=== PATIENT | female | born 1965 | race Two or more races ===

== ENCOUNTER 2017-01-12 22:06 | Emergency (ER) | payer BC ==
[2017-01-12] MEDS ORDERED: IBUPROFEN 600 MG TAB PO ONE (22:49)
[2017-01-12] MEDS ORDERED: ONDANSETRON 4 MG/2 ML VIAL ONE (22:49)
[2017-01-12] MEDS ORDERED: HYDROmorphone 1 MG/ML 1 ML SYRINGE ONE (22:49)
[2017-01-12] MEDS ORDERED: CIPROFLOXACIN HCL 500 MG TAB ONE (22:49)
[2017-01-12 22:57] LABS: Basophils # (A) 0.1 k/uL (0-0.2); Basophils % (A) 1 %; CH 30.9; CHCM 33.9; Eosinophils # (A) 0.1 k/uL (0-0.7); Eosinophils % (A) 1 %; HCT 40.6 % (34.0-46.0); HDW 1.99; Luc # (Auto) 0.18; Luc % (Auto) 2; Lymphocytes # (A) 1.8 k/uL (1.0-4.8); Lymphocytes % (A) 16 %; MCH 31.5 pg (25.0-35.0); MCHC 34.4 g/dL (31.0-37.0); MCV 91.6 fL (80.0-100.0); Mean Platelet Volume 8.5; Monocytes # (A) 0.5 k/uL (0-1.0); Monocytes % (A) 4 %; Neutrophils # (A) 8.9 k/uL (1.3-7.7); Neutrophils % (A) 77 %; RBC 4.43 m/uL (3.80-5.40); RDW 13.5 % (11.5-15.5); WBC 11.5 k/uL (3.8-10.6); WBC (Perox) 13.41
[2017-01-12 23:00] LABS: Appearance,Urine Clear (Clear); Bacteria,Urine Rare /hpf; Bilirubin,Urine Negative (Negative); Glucose,Urine (UA) Negative (Negative); Ketones,Urine Negative (Negative); Leukocyte Esterase,Urine Large (Negative); Nitrite,Urine Negative (Negative); PH, Urine 6.5 (5.0-8.0); Particle Count 890; Protein,Urine 1+ (Negative); RBC,Urine 3 /hpf (0-5); Specific Gravity,Urine 1.002 (1.001-1.035); UA Billing (MACRO vs. MICRO) MICRO; Urobilinogen,Urine <2.0 mg/dL (<2.0); WBC,Urine 105 /hpf (0-5)
[2017-01-12 23:06] LABS: ALT 28 U/L (9-52); AST 16 U/L (14-36); Alkaline Phosphatase 63 U/L (38-126); Amylase <30 U/L (30-110); Anion Gap 11 mmol/L; Blood Urea Nitrogen 10 mg/dL (7-17); Calcium 9.3 mg/dL (8.4-10.2); Carbon Dioxide 23 mmol/L (22-30); Chloride 106 mmol/L (98-107); Glucose 104 mg/dL (74-99); Non-African American GFR(MDRD) >60 (>60 ml/min/1.73 sqM); Potassium 3.8 mmol/L (3.5-5.1); Sodium 140 mmol/L (137-145); Total Bilirubin 0.9 mg/dL (0.2-1.3); Total Protein 6.4 g/dL (6.3-8.2)
[2017-01-13] MEDS ORDERED: SODIUM CHLORIDE 0.9% 1,000 ML BAG ONE (07:06)
--- NOTE | 2017-01-13 08:02 | XR ---
Abdomen HISTORY: Low abdomen pain View of the abdomen on 2 images No comparisons There is no evident bowel obstruction, pneumoperitoneum, or visceromegaly. Possible vascular calcific ation in the left hemipelvis. Lung bases are clear. There is a spinal curvature. IMPRESSION: Nonobstructive bowel gas pattern
--- NOTE | 2017-01-13 08:06 | CT ---
EXAMINATION TYPE: CT abdomen pelvis w con DATE OF EXAM: 01/13/2017 COMPARISON: Abdomen 01/12/2017 HISTORY: Abdominal pain, urinary retention Automated exposure control for dose reduction was used. TECHNIQUE: Helical acquisition of images from the lung bases through the pelvis have been completed. CONTRAST: Performed without Oral Contrast and with IV Contrast, patient injected with 100 cc of Omnipaque 300. FINDINGS: LUNG BASES: No significant abnormality is appreciated. AORTA: No significant abnormality is appreciated. LIVER/GB: Subcentimeter low dense focus in the right lobe inferiorly likely represents a cyst within the liver. Gallbladder is unremarkable. PANCREAS: No significant abnormality is seen. SPLEEN: No significant abnormality is seen. ADRENALS: No significant abnormality is seen. KIDNEYS: No significant abnormality is seen. REPRODUCTIVE ORGANS: No significant abnormality is seen BOWEL: No significant abnormality is seen. FREE AIR: No Free Air visible. ASCITES: None visible. PELVIC ADENOPATHY: None visualized. RETROPERITONEAL ADENOPATHY: No Retroperitoneal Adenopathy visible. URINARY BLADDER: The urinary bladder wall is thickened. Phlebolith likely in the left hemipelvis. OSSEOUS STRUCTURES: No significant abnormality is seen. IMPRESSION: CORRELATE TO EXCLUDE CYSTITIS, PRELIMINARY REPORT OFFERED BY [facility] AT THE TIME OF PERFOR JULIETTE OF THE EXAM.
== END 2017-01-13 01:27 | disposition home or self-care (01) ==
LOC: EC 22:06 → SUPCPDRO 22:06 → EC 01-13 01:27
DX: N39.0 Urinary tract infection, site not specified (principal); K59.00 Constipation, unspecified; F41.9 Anxiety disorder, unspecified; F17.200 Nicotine dependence, unspecified, uncomplicated; Z79.899 Other long term (current) drug therapy; Z88.1 Allergy status to other antibiotic agents; Z88.6 Allergy status to analgesic agent; Z88.5 Allergy status to narcotic agent
CPT/HCPCS: 99284; 96374; 96375; 96361; 36415; 80053; 82150; 83605; 83690; 85025; 81001; 87040; 87086; 74000; 74177; J2405; J1170; Q9967; 87077; 87186

== ENCOUNTER → 2022-06-17 | Outpatient (CLI) | payer BC ==
--- NOTE | 2022-06-17 12:29 | CA ---
Exercise Stress Test Report Name: Dilcia Graves Exam Date: 06/17/2022 10:46 Exam Location: [facility] Stress Ht (in): 71 Wt (lb): 175 BSA: 1.99 Ordering Phys: Molly Carlos DO Referring Phys: Neva Neal Technologist: Jono Jackson Age: 57 Gender: F : 1965 Procedure CPT: Indications: I49.3 R03.0 elevated blood pressure hx of htn ICD-10 Codes: Patient History: Medications: NONE Meds past 24 hrs: Pretest Chest Pain: STRESS TEST Alexandro Protocol Exercise Duration (min:sec): 06:[address] Depressions (mm): Angina Score: Jean-Baptiste Score: Resting HR (bpm): 71 Peak HR (bpm): 153 Resting BP (mmHg): 143 / 95 Peak BP (mmHg): 182 / 79 MPHR: 165 Target HR: 140 % MPHR: 93 METS: 9.4 Total Dose: Peak Dose: Atropine: Double Product: 66957 BP Response: Stress Termination: Reached target heart rate Stress Symptoms: NO SYMPTOMS Stress Summary: ECG ANALYSIS Resting ECG: Normal sinus rhythm with poor R progression PVCs Stress ECG: Patient exercised on Alexandro protocol for a total of 6 and half minutes achieving 8 metastases 85% of predicted maximal heart rate without chest pain or diagnostic ST segment depression CONCLUSIONS Average exercise tolerance Negative stress test by EKG criteria Cardiolite portion of the stress test will be reported separately Dr. Radames Miller MD (Electronically Signed) Final Date: 17 June 2022 12:28
--- NOTE | 2022-06-17 12:47 | NM ---
EXAMINATION TYPE: NM stress cardiolite complete DATE OF EXAM: 06/17/2022 COMPARISON: NONE HISTORY: Chest pain TECHNIQUE: After the intravenous administration of 9.6 mCi Tc 99m Sestamibi - Rest images obtained 4 5 minutes post injection. The patient exercised using a DALTON protocol and 1 minute prior to peak e xercise was injected with 25.5 mCi Tc 99m Sestamibi - Stress images obtained 45 minutes post injectio n. FINDINGS: Targeted heart rate was achieved during performance of the study. Review of stress and rest SPECT roscoe ges demonstrates a small reversible perfusion defect involving the apex of the myocardium.. Gated an alysis shows normal wall motion with an estimated left ventricular ejection fraction of 58 %. Report called to referring clinician 12:43 PM 06/17/2022. IMPRESSION: 1. Cannot exclude a small stress-induced reversible perfusion defect\ischemia apex myocardium.
== END | disposition home or self-care (01) ==
LOC: RADNMMAIN 08:06
PROVIDERS: ATTEND Family Medicine
DX: I49.3 Ventricular premature depolarization (principal); R03.0 Elevated blood-pressure reading, without diagnosis of hypertension
CPT/HCPCS: 93017; 78452; A9500

== ENCOUNTER → 2022-08-02 | Outpatient (CLI) | payer BC ==
[2022-08-02 18:48] LABS: HCT 45.2 % (37.2-46.3); HGB 13.8 g/dL (12.0-15.0); MCH 30.1 pg (27.0-32.0); MCHC 30.5 g/dL (32.0-37.0); MCV 98.5 fL (80.0-97.0); Mean Platelet Volume 11.5 fL (9.5-12.2); NRBC Per 100 WBC 0 /100 WBCS (0.0-0.0); Platelet Count 370 X 10*3/uL (140-440); RBC 4.59 X 10*6/uL (4.10-5.20); RDW 13.3 % (11.5-14.5); WBC 8.02 X 10*3/uL (4.50-10.00)
[2022-08-02 18:54] LABS: African American GFR (CKD) 118.9 (60.0-200.0); Blood Urea Nitrogen 13.2 mg/dL (9.0-27.0); Non-African American GFR(CKD) 102.6 (60.0-200.0); Potassium 4.7 mmol/L (3.5-5.5)
== END | disposition home or self-care (01) ==
LOC: LABPAT 11:04
PROVIDERS: ATTEND Internal Medicine Interventional Cardiology
DX: Z01.812 Encounter for preprocedural laboratory examination (principal); R07.9 Chest pain, unspecified
CPT/HCPCS: 80051; 82565; 84520; 85027

== ENCOUNTER → 2023-11-21 | Outpatient (CLI) | payer BC ==
--- NOTE | 2023-11-21 10:44 | CT ---
EXAMINATION TYPE: CT angio chest DATE OF EXAM: 11/21/2023 COMPARISON: None HISTORY: r/o PE, family hx of aneurysm CT DLP: 190.00 mGycm CONTRAST: CTA thoracic aorta with 3-D reconstruction is performed and with IV Contrast, patient injected with 1 00 mL of Isovue 370. Contrast CTA of the thoracic aorta was performed from the lung apex through the upper abdomen. 3D re construction imaging obtained at a separate workstation. CT Chest: THORACIC AORTA: No evidence for thoracic aortic aneurysm. Ascending thoracic aorta measures 3.8 cm AP dimension while the descending thoracic aorta measures 2.5 cm. Aortic arch is normal caliber. Mild a theromatous changes seen. There is no evidence for dissection or periaortic collection. LUNGS: The lungs are clear and free of infiltrate or atelectasis. No pulmonary nodule or mass is det ected. No pleural effusion or CT evidence of interstitial lung disease. Mild upper lobe paraseptal e aamir. MEDIASTINUM: No evidence for mediastinal hematoma. The heart is not enlarged. No evidence for med iastinal mass or adenopathy. HILAR STRUCTURES: No evidence for mass. No hilar adenopathy is appreciated. OTHER: No significant abnormality. IMPRESSION- No significant abnormality appreciated.
== END | disposition home or self-care (01) ==
LOC: RADCTMAIN 10:06
PROVIDERS: ATTEND Family Medicine
DX: I70.0 Atherosclerosis of aorta (principal); Z82.49 Family history of ischemic heart disease and other diseases of the circulatory system
CPT/HCPCS: 71275; Q9967

== ENCOUNTER 2024-03-09 07:51 | Day surgery (SDC) | payer BC ==
[~2024-03-09 07:51] MED LIST: LIDOCAINE 1% (10MG/ML) FOR IV START INTRADERMA PRN
[2024-03-09] MEDS: IV FLUID CONTINUATION 1,000 ML IV ONE ×2 (08:13→09:24)
[2024-03-09 08:22] VITALS: TEMP 97.1
[2024-03-09] MEDS: LACTATED RINGERS 1,000 ML IV SCH (08:30)
[2024-03-09] MEDS ORDERED: PROPOFOL 10 MG/ML 20 ML VIAL IV ONE (09:25)
--- NOTE | 2024-03-09 09:30 | P.GSHP ---
History of Present Illness H&P Date: 03/09/24 Chief Complaint: GERD, screening 59-year-old female here for upper and lower endoscopy. History of previous bleeding ulcer at age 21. Patient with chronic reflux. Takes Pepcid and now starting omeprazole again. No dysphagia. No bowel complaints. No family history of colon cancer. Never had a colonoscopy. Past Medical History Past Medical History: GERD/Reflux Additional Past Medical History / Comment(s): seizure x1 (reaction to medication) at 27yrs old., heart murmur checked out by cardiology, hx of covid x2, See [facility]iology [facility]. hx of bleeding ulcers at 21 yrs old. History of Any Multi-Drug Resistant Organisms: None Reported Past Surgical History: Section, Tubal Ligation, Uterine Ablation Additional Past Surgical History / Comment(s): left knee rebuilt ., right knee surgery, achilles tendon Past Anesthesia/Blood Transfusion Reactions: No Reported Reaction Additional Past Anesthesia/Blood Transfusion Reaction / Comment(s): kicks when she wakes up. Smoking Status: Current every day smoker - Past Family History Mother Family Medical History: No Reported History Medications and Allergies Home Medications Medication Instructions Recorded Confirmed Type Omeprazole 20 mg PO DAILY PRN 03/04/24 03/09/24 History Semaglutide [Wegovy] 2.4 mg SQ SA 03/04/24 03/09/24 History Unk Motrin 1 tab PO DIRECTED PRN 03/04/24 03/09/24 History Unk Pepcid 1 tab PO DAILY 03/04/24 03/09/24 History Allergies Allergy/AdvReac Type Severity Reaction Status Date / Time cefuroxime [From Ceftin] Allergy Severe seizure Verified 03/09/24 08:23 and red all over morphine Allergy Severe Rash/Hives, Verified 03/09/24 08:23 nausea / vomiting acetaminophen Allergy Unknown seizure Verified 03/09/24 08:23 [From Tylenol Sinus Congestion Pain] chlorpheniramine Allergy Unknown seizure Verified 03/09/24 08:23 [From Tylenol Sinus Congestion Pain] guaifenesin Allergy Unknown seizure Verified 03/09/24 08:23 [From Tylenol Sinus Congestion Pain] meperidine [From Demerol] Allergy Unknown Rash/Hives, Verified 03/09/24 08:23 nausea/vomiting phenylephrine Allergy Unknown seizure Verified 03/09/24 08:23 [From Tylenol Sinus Congestion Pain] Surgical - Exam Vital Signs Temp Pulse Resp BP Pulse Ox 97.1 F L 72 16 132/78 97 03/09/24 08:19 03/09/24 08:19 03/09/24 08:19 03/09/24 08:19 03/09/24 08:19 Physical exam: General: Well-developed, well-nourished HEENT: Normocephalic, sclerae nonicteric Abdomen: Nontender, nondistended Extremities: No edema Neuro: Alert and oriented Assessment and Plan (1) GERD (gastroesophageal reflux disease) Narrative/Plan: Will proceed with EGD and colonoscopy. Current Visit: Yes Status: Acute Code(s): K21.9 - GASTRO-ESOPHAGEAL REFLUX DISEASE WITHOUT ESOPHAGITIS SNOMED Code(s): 159730991
--- NOTE | 2024-03-09 09:49 | P.PCN ---
Date of Procedure: 03/09/24 Procedure(s) Performed: PREOPERATIVE DIAGNOSIS: GERD, screening POSTOPERATIVE DIAGNOSIS: Gastritis, hiatal hernia, diverticulosis PROCEDURE: 1. EGD with biopsy 2. Colonoscopy ANESTHESIA: MAC SURGEON: Kaden Lopez M.D. SPECIMENS: Antrum ENDOSCOPIC PROCEDURE: The patient was on the endoscopy table in the left decubitus position. The Olympus gastroscope was inserted into the oropharynx and passed under direct visualization to the region of the third portion of the duodenum. From that point the scope was slowly withdrawn inspecting all surfaces carefully. There were no neoplastic inflammatory or polypoid lesions throughout the duodenum. The pylorus was widely patent. The stomach was carefully inspected. There was mild gastritis. A biopsy of the antrum took place to rule out H. pylori. Retroflexion revealed a small the moderate-sized hiatal hernia. The esophagus was then carefully examined. There were no neoplastic inflammatory or polypoid lesions throughout the visualized esophagus. The patient was kept on the endoscopy table in the left decubitus position. The Olympus colonoscope was inserted into the anus and passed under direct visualization to the base of the cecum. The appendiceal orifice was visualized. From that point the scope was slowly withdrawn inspecting all surfaces carefully. There were no neoplastic inflammatory or polypoid lesions throughout the cecum, ascending, transverse, descending, sigmoid and rectum. There was mild scattered visible diverticulosis noted. Digital rectal examination was normal. The patient was taken to the recovery room in stable condition per anesthesia guidelines. RECOMMENDATIONS: Await biopsy results. Resume diet. Repeat colonoscopy 10 years.
[2024-03-09 10:10] VITALS: BP 128/64; PULSE 86; RESP 17
== END 2024-03-09 10:35 | disposition home or self-care (01) ==
LOC: ORWHC2ENDO 07:51
PROVIDERS: ATTEND Surgery
DX: Z12.11 Encounter for screening for malignant neoplasm of colon (principal); K31.9 Disease of stomach and duodenum, unspecified; K29.70 Gastritis, unspecified, without bleeding; K44.9 Diaphragmatic hernia without obstruction or gangrene; F17.210 Nicotine dependence, cigarettes, uncomplicated; K21.00 Gastro-esophageal reflux disease with esophagitis, without bleeding; G40.509 Epileptic seizures related to external causes, not intractable, without status epilepticus; Z86.16 Personal history of COVID-19; Z98.51 Tubal ligation status; Z88.1 Allergy status to other antibiotic agents; Z88.5 Allergy status to narcotic agent; Z88.6 Allergy status to analgesic agent; Z88.8 Allergy status to other drugs, medicaments and biological substances; Z88.9 Allergy status to unspecified drugs, medicaments and biological substances; Z79.899 Other long term (current) drug therapy
CPT/HCPCS: 43239; 45378; 88305

== ENCOUNTER → 2025-01-10 | Outpatient (CLI) | payer BC ==
--- NOTE | 2025-01-10 08:43 | CTL ---
EXAMINATION TYPE: CT Low Dose Lung DATE OF EXAM ORDERED: 01/10/2025 COMPARISON: CTA chest 11/21/2023 CLINICAL INDICATION: Female, 59 years old with history of Z12.2 SCREENING LUNG CA F17.210 NICOTINE DE PENDENT; PHH, CURRENT SMOKER, 1PPD X40 YEARS, Lung cancer screening, History of Smoking/tobacco use. TECHNIQUE: Low dose computed tomography scan was performed through the chest at 1 mm thick sections a nd reconstructed images in multiple planes at 1 mm and [address] DLP: [address] CTDI: 1.41 mGy Automated exposure control for dose reduction was used. CT DIAGNOSTIC QUALITY: Satisfactory FINDINGS: Nodules: No clinically significant pulmonary nodule. LUNGS: COPD: Severity: Mild paraseptal emphysematous changes. Fibrosis: Severity: None Lymph nodes: None Other findings: Elevation of the right hemidiaphragm. Mild biapical pleural-parenchymal scarring. RIGHT PLEURAL SPACE: Effusion: None Calcification: None Thickening: None Pneumothorax: None LEFT PLEURAL SPACE: Effusion: None Calcification: None Thickening: None Pneumothorax: None HEART: Heart Size: Normal Coronary Calcification: None Pericardial Effusion: None OTHER FINDINGS: Upper abdomen: None Bony thorax: Chronic mild anterior wedging of the L1 vertebral body. Supraclavicular region: None Other: None IMPRESSION: 1. No clinically significant pulmonary nodule. 2. Mild emphysematous change. CT LUNG RAD AND CT CHEST RECOMMENDATION: Lung-Rad 1 Negative: Continue annual screening with LDCT in 12 months. S Modifier (other clinically significant findings): None [facility], , 01/10/2025 8:40 AM
== END | disposition home or self-care (01) ==
LOC: RADCTMAIN 08:10
PROVIDERS: ATTEND Family Medicine
DX: Z12.2 Encounter for screening for malignant neoplasm of respiratory organs (principal); F17.210 Nicotine dependence, cigarettes, uncomplicated; J43.9 Emphysema, unspecified
CPT/HCPCS: 71271